=== PATIENT | male | born 2000 | race African-American/Black ===

== ENCOUNTER 2023-04-19 20:02 | Emergency (ER) | payer OTHER ==
[~2023-04-19] VITALS: Ht 172.7 cm; Wt 61.0 kg
[2023-04-19 20:47] VITALS: BP 106/72
[2023-04-19 21:25] LABS: BASOPHILS % 0.5 % (0.0-2.0); EOSINOPHILS % 3.4 % (0.0-5.0); LYMPHOCYTES % 39.5 % (20.0-50.0); MEAN CORPUSCULAR HEMOGLOBIN 30.6 pg (28.0-32.0); MEAN CORPUSCULAR VOLUME 89.5 fL (80.0-94.0); MEAN PLATELET VOLUME 8.8 fl (7.4-10.4); MONOCYTES % 14.1 % (2.0-8.0); NEUTROPHILS % 42.5 % (40.0-76.0); PLATELET 189 x1000/uL (130-400); RED BLOOD CELL COUNT 4.91 mill/uL (4.7-6.1)
[2023-04-19 21:37] LABS: CHLORIDE 105 mEq/L (98-107)
[2023-04-19] MEDS ORDERED: MAGNESIUM/ALUMINUM HYDROXIDE/SIMETHICONE 30ML UDC PO STA (21:43)
[2023-04-19] MEDS ORDERED: DICYCLOMINE 10 MG/5 ML ORAL SYR PO STA (21:43)
== END 2023-04-19 22:49 | disposition home or self-care (01) ==
LOC: ER 20:02
DX: E11.65 Type 2 diabetes mellitus with hyperglycemia (principal)
CPT/HCPCS: 36415; 71045; 80048; 82962; 85025; 93005; 99285

== ENCOUNTER 2023-07-16 13:05 | Emergency (ER) | payer OTHER ==
[~2023-07-16] VITALS: Ht 177.8 cm; Wt 69.0 kg
[2023-07-16 13:16] VITALS: BP 125/67; PULSE 88; RESP 20; TEMP 99.9; O2SAT 100
[2023-07-16] MEDS ORDERED: NIRM1TAB * (15:46)
[2023-07-16] MEDS ORDERED: BO1 TP (15:46)
== END 2023-07-16 16:08 | disposition home or self-care (01) ==
LOC: ER 13:14
DX: S90.821A Blister (nonthermal), right foot, initial encounter (principal); U07.1 COVID-19; E11.9 Type 2 diabetes mellitus without complications; X58.XXXA Exposure to other specified factors, initial encounter; Y93.89 Activity, other specified; Y92.89 Other specified places as the place of occurrence of the external cause; Y99.8 Other external cause status
CPT/HCPCS: 99283; 87426; 87804 ×2; C9803